=== PATIENT | female | born 1960 | race American Indian/Alaskan Native ===

== ENCOUNTER 2018-02-17 09:39 | Emergency (ER) | payer SELFPAY ==
[2018-02-17 09:46] VITALS: BP 196/106
--- NOTE | 2018-02-17 11:28 | Emergency Department Report ---
ED General Adult HPI - General Chief complaint: Weakness Stated complaint: FLU SYMPTOMS Time Seen by Provider: 02/17/18 10:14 Source: patient Mode of arrival: Ambulatory Limitations: No Limitations - History of Present Illness Initial comments: Patient presents to emergency department with a chief complaint of not feeling well 1 week. Patient states she's been on for since Thursday because she is having body aches and sinus congestion. 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 She was told today to come to the hospital for evaluation. Patient denies fever. Patient does endorse having a cough as well. -: Gradual Severity scale (0 -10): 0 Improves with: none Worsens with: none Associated Symptoms: denies other symptoms - Related Data Allergies Allergy/AdvReac Type Severity Reaction Status Date / Time No Known Allergies Allergy Unverified 02/17/18 09:44 ED Review of Systems ROS: Stated complaint: FLU SYMPTOMS Other details as noted in HPI Comment: All other systems reviewed and negative Constitutional: denies: chills, fever Eyes: denies: eye pain, eye discharge, vision change ENT: denies: ear pain, throat pain Respiratory: denies: cough, shortness of breath, wheezing Cardiovascular: denies: chest pain, palpitations Endocrine: no symptoms reported Gastrointestinal: denies: abdominal pain, nausea, diarrhea Genitourinary: denies: urgency, dysuria, discharge Musculoskeletal: denies: back pain, joint swelling, arthralgia Skin: denies: rash, lesions Neurological: denies: headache, weakness, paresthesias Psychiatric: denies: anxiety, depression Hematological/Lymphatic: denies: easy bleeding, easy bruising ED Past Medical Hx - Past Medical History Additional medical history: pancreatitis - Surgical History Additional Surgical History: hysterectomy - Social History Smoking Status: Never Smoker Substance Use Type: None ED Physical Exam - General Limitations: No Limitations General appearance: alert, in no apparent distress - Head Head exam: Present: atraumatic, normocephalic - Eye Eye exam: Present: normal appearance - ENT ENT exam: Present: mucous membranes moist - Neck Neck exam: Present: normal inspection - Respiratory Respiratory exam: Present: normal lung sounds bilaterally. Absent: respiratory distress, wheezes, rales, rhonchi - Cardiovascular Cardiovascular Exam: Present: regular rate, normal rhythm. Absent: systolic murmur, diastolic murmur, rubs, gallop - GI/Abdominal GI/Abdominal exam: Present: soft, normal bowel sounds. Absent: distended, tenderness - Extremities Exam Extremities exam: Present: normal inspection - Back Exam Back exam: Present: normal inspection - Neurological Exam Neurological exam: Present: alert, oriented X3, CN II-XII intact. Absent: motor sensory deficit - Psychiatric Psychiatric exam: Present: normal affect, normal mood - Skin Skin exam: Present: warm, dry, intact, normal color. Absent: rash ED Course Vital Signs 02/17/18 09:44 Temperature 98.9 F Pulse Rate 88 Respiratory 20 Rate Blood Pressure 196/106 O2 Sat by Pulse 99 Oximetry ED Medical Decision Making - Lab Data Result diagrams: 02/17/18 11:27 02/17/18 11:27 Lab Results 02/17/18 02/17/18 02/17/18 Range/Units 11:27 11:27 11:47 WBC 5.8 (4.5-11.0) K/mm3 RBC 5.88 H (3.65-5.03) M/mm3 Hgb 13.0 (10.1-14.3) gm/dl Hct 41.6 (30.3-42.9) % MCV 71 L (79-97) fl MCH 22 L (28-32) pg MCHC 31 (30-34) % RDW 15.9 H (13.2-15.2) % Plt Count 214 (140-440) K/mm3 Lymph % (Auto) 35.9 H (13.4-35.0) % [place] % (Auto) 12.1 H (0.0-7.3) % Eos % (Auto) 1.7 (0.0-4.3) % Baso % (Auto) 0.9 (0.0-1.8) % Lymph # 2.1 (1.2-5.4) K/mm3 Sargent # 0.7 (0.0-0.8) K/mm3 Eos # 0.1 (0.0-0.4) K/mm3 Baso # 0.0 (0.0-0.1) K/mm3 Seg Neutrophils % 49.4 (40.0-70.0) % Seg Neutrophils # 2.9 (1.8-7.7) K/mm3 Sodium 139 (137-145) mmol/L Potassium 3.7 (3.6-5.0) mmol/L Chloride 101.1 (98-107) mmol/L Carbon Dioxide 27 (22-30) mmol/L Anion Gap 15 mmol/L BUN 13 (7-17) mg/dL Creatinine 0.7 (0.7-1.2) mg/dL Estimated GFR > 60 ml/min BUN/Creatinine Ratio 19 % Glucose 128 H (65-100) mg/dL Calcium 9.1 (8.4-10.2) mg/dL Urine Color Yellow (Yellow) Urine Turbidity Cloudy (Clear) Urine pH 6.0 (5.0-7.0) Ur Specific [place] 1.014 (1.003-1.030) Urine Protein 30 mg/dl (Negative) mg/dL Urine Glucose (UA) Neg (Negative) mg/dL Urine Ketones Neg (Negative) mg/dL Urine Blood Neg (Negative) Urine Nitrite Neg (Negative) Urine Bilirubin Neg (Negative) Urine Urobilinogen < 2.0 (<2.0) mg/dL Ur Leukocyte Esterase Neg (Negative) Urine WBC (Auto) 4.0 (0.0-6.0) /HPF Urine RBC (Auto) 1.0 (0.0-6.0) /HPF U Epithel Cells (Auto) 39.0 H (0-13.0) /HPF Urine Bacteria (Auto) 2+ (Negative) /HPF Lab Results 02/17/18 02/17/18 02/17/18 Range/Units 11:27 11:27 11:47 WBC 5.8 (4.5-11.0) K/mm3 RBC 5.88 H (3.65-5.03) M/mm3 Hgb 13.0 (10.1-14.3) gm/dl Hct 41.6 (30.3-42.9) % MCV 71 L (79-97) fl MCH 22 L (28-32) pg MCHC 31 (30-34) % RDW 15.9 H (13.2-15.2) % Plt Count 214 (140-440) K/mm3 Lymph % (Auto) 35.9 H (13.4-35.0) % [place] % (Auto) 12.1 H (0.0-7.3) % Eos % (Auto) 1.7 (0.0-4.3) % Baso % (Auto) 0.9 (0.0-1.8) % Lymph # 2.1 (1.2-5.4) K/mm3 [place]ent # 0.7 (0.0-0.8) K/mm3 Eos # 0.1 (0.0-0.4) K/mm3 Baso # 0.0 (0.0-0.1) K/mm3 Seg Neutrophils % 49.4 (40.0-70.0) % Seg Neutrophils # 2.9 (1.8-7.7) K/mm3 Sodium 139 (137-145) mmol/L Potassium 3.7 (3.6-5.0) mmol/L Chloride 101.1 (98-107) mmol/L Carbon Dioxide 27 (22-30) mmol/L Anion Gap 15 mmol/L BUN 13 (7-17) mg/dL Creatinine 0.7 (0.7-1.2) mg/dL Estimated GFR > 60 ml/min BUN/Creatinine Ratio 19 % Glucose 128 H (65-100) mg/dL Calcium 9.1 (8.4-10.2) mg/dL Urine Color Yellow (Yellow) Urine Turbidity Cloudy (Clear) Urine pH 6.0 (5.0-7.0) Ur Specific [place] 1.014 (1.003-1.030) Urine Protein 30 mg/dl (Negative) mg/dL Urine Glucose (UA) Neg (Negative) mg/dL Urine Ketones Neg (Negative) mg/dL Urine Blood Neg (Negative) Urine Nitrite Neg (Negative) Urine Bilirubin Neg (Negative) Urine Urobilinogen < 2.0 (<2.0) mg/dL Ur Leukocyte Esterase Neg (Negative) Urine WBC (Auto) 4.0 (0.0-6.0) /HPF Urine RBC (Auto) 1.0 (0.0-6.0) /HPF U Epithel Cells (Auto) 39.0 H (0-13.0) /HPF Urine Bacteria (Auto) 2+ (Negative) /HPF Lab Results 02/17/18 02/17/18 02/17/18 Range/Units 11:27 11:27 11:47 WBC 5.8 (4.5-11.0) K/mm3 RBC 5.88 H (3.65-5.03) M/mm3 Hgb 13.0 (10.1-14.3) gm/dl Hct 41.6 (30.3-42.9) % MCV 71 L (79-97) fl MCH 22 L (28-32) pg MCHC 31 (30-34) % RDW 15.9 H (13.2-15.2) % Plt Count 214 (140-440) K/mm3 Lymph % (Auto) 35.9 H (13.4-35.0) % [place] % (Auto) 12.1 H (0.0-7.3) % Eos % (Auto) 1.7 (0.0-4.3) % Baso % (Auto) 0.9 (0.0-1.8) % Lymph # 2.1 (1.2-5.4) K/mm3 [place] # 0.7 (0.0-0.8) K/mm3 Eos # 0.1 (0.0-0.4) K/mm3 Baso # 0.0 (0.0-0.1) K/mm3 Seg Neutrophils % 49.4 (40.0-70.0) % Seg Neutrophils # 2.9 (1.8-7.7) K/mm3 Sodium 139 (137-145) mmol/L Potassium 3.7 (3.6-5.0) mmol/L Chloride 101.1 (98-107) mmol/L Carbon Dioxide 27 (22-30) mmol/L Anion Gap 15 mmol/L BUN 13 (7-17) mg/dL Creatinine 0.7 (0.7-1.2) mg/dL Estimated GFR > 60 ml/min BUN/Creatinine Ratio 19 % Glucose 128 H (65-100) mg/dL Calcium 9.1 (8.4-10.2) mg/dL Urine Color Yellow (Yellow) Urine Turbidity Cloudy (Clear) Urine pH 6.0 (5.0-7.0) Ur Specific [place] 1.014 (1.003-1.030) Urine Protein 30 mg/dl (Negative) mg/dL Urine Glucose (UA) Neg (Negative) mg/dL Urine Ketones Neg (Negative) mg/dL Urine Blood Neg (Negative) Urine Nitrite Neg (Negative) Urine Bilirubin Neg (Negative) Urine Urobilinogen < 2.0 (<2.0) mg/dL Ur Leukocyte Esterase Neg (Negative) Urine WBC (Auto) 4.0 (0.0-6.0) /HPF Urine RBC (Auto) 1.0 (0.0-6.0) /HPF U Epithel Cells (Auto) 39.0 H (0-13.0) /HPF Urine Bacteria (Auto) 2+ (Negative) /HPF - Radiology Data Radiology results: report reviewed Critical care attestation.: If time is entered above; I have spent that time in minutes in the direct care of this critically ill patient, excluding procedure time. ED Disposition Clinical Impression: Cough, Congestion of nasal sinus, Viral syndrome Disposition: DC- TO HOME OR SELFCARE Is pt being admited?: No Does the pt Need Aspirin: No Condition: Stable Instructions: Viral Syndrome (ED) Additional Instructions: Return if worse Referrals: PRIMARY CARE, [Primary Care Provider] - 3-5 Days Forms: Work/School Release Form(ED) Time of Disposition: 12:48
--- NOTE | 2018-02-17 11:29 | XRay Report ---
ROUTINE CHEST, TWO VIEWS: HISTORY: Cough. The trachea, heart, mediastinal contour, lung wilson and bony thorax are unremarkable. IMPRESSION: Unremarkable chest x-ray.
[2018-02-17 11:39] LABS: Basophils % (Auto) 0.9 % (0.0-1.8); Eosinophils # (Auto) 0.1 K/mm3 (0.0-0.4); Eosinophils % (Auto) 1.7 % (0.0-4.3); Hematocrit 41.6 % (30.3-42.9); Lymphocytes # (Auto) 2.1 K/mm3 (1.2-5.4); Lymphocytes % (Auto) 35.9 % (13.4-35.0); Mean Corpuscular HGB Conc 31 % (30-34); Mean Corpuscular Volume 71 fl (79-97); Monocytes # (Auto) 0.7 K/mm3 (0.0-0.8); Monocytes % (Auto) 12.1 % (0.0-7.3); Platelet Count 214 K/mm3 (140-440); Red Blood Count 5.88 M/mm3 (3.65-5.03); Red Cell Distribution Width 15.9 % (13.2-15.2)
[2018-02-17 11:40] LABS: Mean Corpuscular Hemoglobin 22 pg (28-32)
[2018-02-17 11:53] LABS: BUN/Creatinine Ratio 19; Blood Urea Nitrogen 13 mg/dL (7-17); Calcium 9.1 mg/dL (8.4-10.2); Hemolysis Index 11
[2018-02-17 12:27] LABS: Bacteria,Urine 2+ /HPF (Negative); Bilirubin,Urine NEG (Negative); Blood,Urine NEG (Negative); Color,Urine Yellow (Yellow); Urobilinogen,Urine < 2.0 mg/dL (<2.0)
== END 2018-02-17 13:50 | disposition home or self-care (01) ==
LOC: ED 09:39
DX: B34.9 Viral infection, unspecified (principal); Z90.710 Acquired absence of both cervix and uterus
CPT/HCPCS: 36415; 71046; 80048; 81001; 85025

== ENCOUNTER 2018-12-16 10:16 | Emergency (ER) | payer SELFPAY ==
[2018-12-16 10:40] VITALS: BP 191/100
[2018-12-16] MEDS ORDERED: IBUPROFEN PO ONE (13:41)
--- NOTE | 2018-12-16 14:31 | XRay Report ---
LEFT KNEE, 3 VIEWS INDICATION: Left knee injury, acute pain. COMPARISON: None. IMPRESSION: Normal bone mineralization. No acute osseous findings or joint pathology is identified. No significant DJD. The soft tissues are within normal limits. No large joint effusion is identified . Signer Name: Al Pierre Jr, MD Signed: 12/16/2018 2:26 PM Workstation Name: [id number]
--- NOTE | 2018-12-16 14:43 | Emergency Department Report ---
ED Lower Extremity HPI - General Chief Complaint: Extremity Injury, Lower Stated Complaint: LFT KNEE PAIN Time Seen by Provider: 12/16/18 12:58 Source: patient Mode of arrival: Wheelchair Limitations: Physical Limitation - History of Present Illness Initial Comments: 53-year-old female presents to ED with left knee pain since yesterday. Patient states while walking she felt popping sensation in her knee. States unable to fully bear weight with her left knee. MD Complaint: knee injury -: days(s) (1) Injury: Knee: Left Type of Injury: unknown Severity: moderate Improves With: immobilization Worsens With: weight bearing, movement Context: walking Associated Symptoms: snap/pop sensation, swelling - Related Data Previous Rx's Medication Instructions Recorded Last Taken Type Naproxen [Naprosyn] 500 mg PO BID #20 tablet 12/16/18 Unknown Rx traMADol [Ultram] 50 mg PO Q6HR PRN #7 tablet 12/16/18 Unknown Rx Allergies Allergy/AdvReac Type Severity Reaction Status Date / Time No Known Allergies Allergy Verified 12/16/18 10:30 ED Review of Systems ROS: Stated complaint: LFT KNEE PAIN Other details as noted in HPI Comment: All other systems reviewed and negative Musculoskeletal: as per HPI ED Past Medical Hx - Past Medical History Previous Medical History?: Yes Hx Hypertension: Yes Additional medical history: pancreatitis - Surgical History Past Surgical History?: Yes Additional Surgical History: hysterectomy - Social History Smoking Status: Never Smoker Substance Use Type: None - Medications Home Medications: Home Medications Medication Instructions Recorded Confirmed Last Taken Type Naproxen [Naprosyn] 500 mg PO BID #20 tablet 12/16/18 Unknown Rx traMADol [Ultram] 50 mg PO Q6HR PRN #7 tablet 12/16/18 Unknown Rx ED Physical Exam - General Limitations: Physical Limitation General appearance: alert, in no apparent distress - Head Head exam: Present: atraumatic, normocephalic - Eye Eye exam: Present: normal appearance, PERRL, EOMI - ENT ENT exam: Present: mucous membranes moist - Neck Neck exam: Present: normal inspection - Respiratory Respiratory exam: Present: normal lung sounds bilaterally. Absent: respiratory distress - Cardiovascular Cardiovascular Exam: Present: regular rate, normal rhythm - GI/Abdominal GI/Abdominal exam: Absent: distended - Extremities Exam Extremities exam: Present: other (swelling, tenderness present to left knee) - Neurological Exam Neurological exam: Present: alert, oriented X3. Absent: motor sensory deficit - Psychiatric Psychiatric exam: Present: normal affect, normal mood - Skin Skin exam: Present: warm, dry, intact, normal color. Absent: rash ED Course Vital Signs 12/16/18 10:38 Temperature 97.6 F Pulse Rate 74 Respiratory 20 Rate Blood Pressure 191/100 O2 Sat by Pulse 98 Oximetry ED Lower Extremity MDM - Radiology Data Radiology results: report reviewed, image reviewed - Differential Diagnosis sprain, fracture Critical care attestation.: If time is entered above; I have spent that time in minutes in the direct care of this critically ill patient, excluding procedure time. ED Disposition Clinical Impression: Left knee sprain Disposition: - TO HOME OR SELFCARE Is pt being admited?: No Condition: Stable Instructions: Knee Sprain (ED) Prescriptions: Naproxen [Naprosyn] 500 mg PO BID #20 tablet traMADol [Ultram] 50 mg PO Q6HR PRN #7 tablet PRN Reason: Pain [facility] [Primary Care Provider] - 3-5 Days TRISTAN MTZ MD [Staff Physician] - 3-5 Days Forms: Work/School Release Form(ED) Time of Disposition: 14:41
== END 2018-12-16 15:18 | disposition home or self-care (01) ==
LOC: ED 10:16
DX: S83.92XA Sprain of unspecified site of left knee, initial encounter (principal); I10 Essential (primary) hypertension; Z90.710 Acquired absence of both cervix and uterus; X58.XXXA Exposure to other specified factors, initial encounter; Y93.01 Activity, walking, marching and hiking; Y92.89 Other specified places as the place of occurrence of the external cause; Y99.8 Other external cause status

== ENCOUNTER 2019-07-13 18:44 | Emergency (ER) | payer SELFPAY ==
[2019-07-13 20:19] VITALS: BP 171/99
--- NOTE | 2019-07-13 20:19 | Emergency Department Report ---
Blank Doc - Documentation Documentation: 58-year-old female that presents with fever, chills, body aches, and cough. This initial assessment/diagnostic orders/clinical plan/treatment(s) is/are subject to change based on patient's health status, clinical progression and re- assessment by fellow clinical providers in the ED. Further treatment and workup at subsequent clinical providers discretion. Patient/guardians urged not to elope from the ED as their condition may be serious if not clinically assessed and managed. Initial orders include: 1- Patient sent to [facility] for further evaluation and treatment 2- cxr 3- rap flu
--- NOTE | 2019-07-13 20:57 | Emergency Department Report ---
- General Chief Complaint: Upper Respiratory Infection Stated Complaint: COLD SX Time Seen by Provider: 07/13/19 20:18 Source: patient Mode of arrival: Ambulatory Limitations: No Limitations - History of Present Illness Initial Comments: Patient is a 58-year-old -Tongan female with a history of hypertension and jdr-xpbynig-ppmoecwdv diabetes who presents to the ED with complaint of acute onset persistent nasal and sinus congestion, frontal sinus pressure and headache, sore throat, diffuse body aches and pains, subjective fever and chills intermittently and dry cough for the last 6 days. Patient states that she has been taking iyrv-kxd-mxnonup medication with no relief. Patient denies dizziness, chest pain, shortness of breath, sore throat, change in vision, abdo li pain, nausea, vomiting, diarrhea, change in vision, syncope, dysuria or urinary frequency and urgency and headache. MD Complaint: fever, cough, sore throat, rhinorrhea, nasal congestion, sinus pain -: Sudden, days(s) (6) Severity: severe Severity scale (0 -10): 7 Quality: sharp Consistency: constant Improves With: nothing Worsens With: nothing Context: sick contacts Associated Symptoms: denies other symptoms, fever, chills, myalgias, headache, rhinorrhea, nasal congestion, cough. denies: shortness of breath, abdominal pain, nausea, vomiting, diarrhea, dysuria, rash, confusion, right sweats, weight loss, epistaxis, hoarseness, ear pain, other Treatments Prior to Arrival: none - Related Data Previous Rx's Medication Instructions Recorded Last Taken Type Naproxen [Naprosyn] 500 mg PO BID #20 tablet 12/16/18 Unknown Rx traMADoL [Ultram] 50 mg PO Q6HR PRN #7 tablet 12/16/18 Unknown Rx Amoxicillin/Potassium Clav 1 each PO Q12H #20 tablet 07/13/19 Unknown Rx [Augmentin 875-125 Tablet] Benzonatate [Tessalon Perles] 100 mg PO Q8HR #30 capsule 07/13/19 Unknown Rx Cetirizine HCl [Zyrtec 10mg tab] 10 mg PO DAILY #30 tablet 07/13/19 Unknown Rx Ibuprofen [Motrin] 800 mg PO Q8HR PRN #30 tablet 07/13/19 Unknown Rx Allergies Allergy/AdvReac Type Severity Reaction Status Date / Time No Known Allergies Allergy Verified 12/16/18 10:30 ED Review of Systems ROS: Stated complaint: COLD SX Other details as noted in HPI Constitutional: denies: chills, fever Eyes: denies: eye pain, eye discharge, vision change ENT: throat pain, congestion. denies: ear pain Respiratory: cough. denies: shortness of breath, wheezing Cardiovascular: denies: chest pain, palpitations, dyspnea on exertion, syncope, paroxysmal nocturnal dyspnea Endocrine: no symptoms reported Gastrointestinal: denies: abdominal pain, nausea, vomiting, diarrhea Genitourinary: denies: urgency, dysuria, discharge Musculoskeletal: arthralgia, myalgia. denies: back pain, joint swelling Skin: denies: rash, lesions Neurological: headache. denies: weakness, paresthesias Psychiatric: denies: anxiety, depression Hematological/Lymphatic: denies: easy bleeding, easy bruising ED Past Medical Hx - Past Medical History Previous Medical History?: Yes Hx Hypertension: Yes Hx Diabetes: Yes Additional medical history: pancreatitis - Surgical History Past Surgical History?: Yes Additional Surgical History: hysterectomy - Social History Smoking Status: Never Smoker Substance Use Type: None - Medications Home Medications: Home Medications Medication Instructions Recorded Confirmed Last Taken Type Naproxen [Naprosyn] 500 mg PO BID #20 tablet 12/16/18 Unknown Rx traMADoL [Ultram] 50 mg PO Q6HR PRN #7 tablet 12/16/18 Unknown Rx Amoxicillin/Potassium Clav 1 each PO Q12H #20 tablet 07/13/19 Unknown Rx [Augmentin 875-125 Tablet] Benzonatate [Tessalon Perles] 100 mg PO Q8HR #30 capsule 07/13/19 Unknown Rx Cetirizine HCl [Zyrtec 10mg tab] 10 mg PO DAILY #30 tablet 07/13/19 Unknown Rx Ibuprofen [Motrin] 800 mg PO Q8HR PRN #30 tablet 07/13/19 Unknown Rx ED Physical Exam - General Limitations: No Limitations General appearance: alert, in no apparent distress - Head Head exam: Present: atraumatic, normocephalic, normal inspection - Eye Eye exam: Present: normal appearance, PERRL, EOMI Pupils: Present: normal accommodation - ENT ENT exam: Present: normal orophraynx, mucous membranes moist, TM's normal bilaterally, normal external ear exam, other (Grossly congested nasal passages) - Neck Neck exam: Present: normal inspection, full ROM. Absent: tenderness, lymphadenopathy - Respiratory Respiratory exam: Present: normal lung sounds bilaterally. Absent: respiratory distress, wheezes, rales, rhonchi, chest wall tenderness, accessory muscle use, decreased breath sounds - Cardiovascular Cardiovascular Exam: Present: regular rate, normal rhythm, normal heart sounds. Absent: systolic murmur, diastolic murmur, rubs, gallop - GI/Abdominal GI/Abdominal exam: Present: soft, normal bowel sounds. Absent: tenderness, guarding, hyperactive bowel sounds, hypoactive bowel sounds - Extremities Exam Extremities exam: Present: normal inspection, full ROM, normal capillary refill - Back Exam Back exam: Present: normal inspection, full ROM. Absent: tenderness, CVA tenderness (R), CVA tenderness (L), muscle spasm, paraspinal tenderness, vertebral tenderness - Neurological Exam Neurological exam: Present: alert, oriented X3, CN II-XII intact, normal gait, reflexes normal - Psychiatric Psychiatric exam: Present: normal affect, normal mood - Skin Skin exam: Present: warm, dry, intact, normal color. Absent: rash ED Course Vital Signs 07/13/19 20:17 Temperature 99.4 F Pulse Rate 78 Respiratory 20 Rate Blood Pressure 171/99 O2 Sat by Pulse 99 Oximetry ED Medical Decision Making - Radiology Data Radiology results: report reviewed, image reviewed - Medical Decision Making This is a 58-year-old -Tongan female with a history of hypertension and znz-pqsytkq-dwlkuqkvf diabetes who presented to the ED with nasal and sinus congestion, frontal sinus pressure, diffuse body aches and pains, subjective fever and chills, sore throat, persistent dry cough for the last 6 days. Patient states that she has been taking jbof-qeg-hmrawgr medications with no relief. In the ED, patient is alert and oriented x3 and is not in distress. Chest x-ray shows no acute cardiopulmonary abnormalities or pneumonitis, pleural effusion or pneumothorax. Patient was discharged home on medications and advised to follow-up with her primary care physician in 7 to 10 days for reevaluation. - Differential Diagnosis URI; Pneumonia; Sinusitis; Flu Critical care attestation.: If time is entered above; I have spent that time in minutes in the direct care o f this critically ill patient, excluding procedure time. ED Disposition Clinical Impression: Acute upper respiratory infection Acute sinusitis, unspecified Qualifiers: Sinusitis location: other Recurrence: non-recurrent Qualified Code(s): J01.80 - Other acute sinusitis Acute bronchitis Qualifiers: Bronchitis organism: other organism Qualified Code(s): J20.8 - Acute bronchitis due to other specified organisms Disposition: TO HOME OR SELFCARE Is pt being admited?: No Does the pt Need Aspirin: No Condition: Stable Instructions: Upper Respiratory Infection (ED), Acute Bronchitis (ED), Acute Bacterial Rhinosinusitis (ED) Additional Instructions: Take medication with food, drink plenty of fluids and follow-up with your primary care physician in 7 to 10 days for reevaluation. Return to the ED immediately if symptoms get worse. Prescriptions: Amoxicillin/Potassium Clav [Augmentin 875-125 Tablet] 1 each PO Q12H #20 tablet Ibuprofen [Motrin] 800 mg PO Q8HR PRN #30 tablet PRN Reason: Pain , Severe (7-10) Benzonatate [Tessalon Perles] 100 mg PO Q8HR #30 capsule Cetirizine HCl [Zyrtec 10mg tab] 10 mg PO DAILY #30 tablet Referrals: [facility] [Outside] - 3-5 Days Forms: Work/School Release Form(ED) Time of Disposition: 20:58 Print Language: GUINEAN
== END 2019-07-13 21:55 | disposition home or self-care (01) ==
LOC: ED 18:44
DX: J01.10 Acute frontal sinusitis, unspecified (principal); J20.9 Acute bronchitis, unspecified; I10 Essential (primary) hypertension; E11.9 Type 2 diabetes mellitus without complications; Z79.1 Long term (current) use of non-steroidal anti-inflammatories (NSAID); Z79.2 Long term (current) use of antibiotics; Z90.710 Acquired absence of both cervix and uterus; Z79.899 Other long term (current) drug therapy
CPT/HCPCS: 99281